=== PATIENT | female | born 1945 | race Caucasian/White ===

== ENCOUNTER 2017-07-13 13:25 | Observation (INO) | payer MEDICARE, OTHER ==
--- NOTE | 2017-07-13 14:59 | RAD ---
HISTORY: cough COMPARISON: No prior. TECHNIQUE: Chest PA and lateral FINDINGS: LUNGS: 9 mm nodular density in the right upper lung. No active pulmonary disease. PLEURA: No significant pleural effusion identified. No pneumothorax apparent. CARDIOVASCULAR: Atherosclerotic aortic calcification. Cardiomediastinal silhouette at the upper limits of normal in size. OSSEOUS STRUCTURES: Degenerative changes. VISUALIZED UPPER ABDOMEN: Normal. OTHER FINDINGS: Right axillary surgical clips. IMPRESSION: No focal consolidation or pleural effusion. 9 mm right upper lobe nodular density. CT scan of the chest can be obtained for further evaluation on a nonemergent basis as clinically warranted.
[2017-07-13 15:14] LABS: BASO % 0.2 % (0.0-2.0); EOS # 0.1 K/uL (0.0-0.7); EOS % 0.6 % (0.0-4.0); HEMOGLOBIN 12.7 g/dL (12.0-16.0); LYMPH # 1.2 K/uL (1.0-4.3); LYMPH % 14.1 % (20.0-40.0); MEAN CELL VOLUME 91.8 fl (81.0-99.0); MEAN CORPUSCULAR HEMOGLOBIN 31.7 pg (27.0-31.0); MEAN CORPUSCULAR HGB CONC 34.5 g/dL (33.0-37.0); MEAN PLATELET VOLUME 8.5 fl (7.2-11.7); MONO # 0.3 K/uL (0.0-0.8); MONO % 4.1 % (0.0-10.0); NEUT # 6.9 K/uL (1.8-7.0); RBC 4.01 Mil/uL (3.80-5.20); RED CELL DISTRIBUTION WIDTH 11.8 % (11.5-14.5); WHITE BLOOD COUNT 8.6 K/uL (4.8-10.8)
--- NOTE | 2017-07-13 15:22 | ED PDOC ---
HPI: Neurologic - General Time Seen by Provider: 07/13/17 14:16 Chief Complaint (Nursing): Abdominal Pain Chief Complaint (Provider): Abdominal Pain Source: patient Exam Limitations: no limitations - History of Present Illness Timing/Duration: 24 hours, episodic Allergies/Adverse Reactions: Allergies No Known Allergies Allergy (Verified 07/13/17 13:42) Home Medications: Ambulatory Orders Atenolol [Tenormin] 25 mg PO DAILY 07/13/17 Losartan [Cozaar] 100 mg PO DAILY 07/13/17 Rosuvastatin Calcium [Crestor] 5 mg PO DAILY 07/13/17 amLODIPine [Norvasc] 2.5 mg PO DAILY 07/13/17 Additional Complaint(s): 72 year old female with medical history of hypertension and hypercholesterolemia , presents to the emergency department for an evaluation of facial and upper chest twitching ongoing since yesterday. She also reports associated nausea, abdominal discomfort and productive cough with white sputum. Patient states she went to Urgent Care on 07/11/17 and had a CXR performed for her 1 month duration of productive cough which revealed possible infiltrates in the lung bases. She was prescribed Azithromycin and started medication 2 days ago. No reported fever or chills. Of note, patient is currently on Labetalol, Lodopin, Losartan and Crestor. PMD: recently moved to [facility] from [place], no established doctor yet. Past Medical History Reviewed: Historical Data, Nursing Documentation, Vital Signs Vital Signs: Last Vital Signs Temp 97 F L 07/13/17 13:42 Pulse 68 07/13/17 13:42 Resp 18 07/13/17 13:42 BP 137/80 07/13/17 13:42 Pulse Ox 97 07/13/17 13:42 - Medical History PMH: HTN, Hypercholesterolemia - Surgical History Other surgeries: bilateral masectomy - Family History Family History: States: No Known Family Hx - Social History Current smoker - smoking cessation education provided: No Ex-Smoker (has not smoked in the last 12 months): No Alcohol: None Drugs: Denies - Home Medications Home Medications: Ambulatory Orders Medication Instructions Recorded Atenolol [Tenormin] 25 mg PO DAILY 07/13/17 Losartan [Cozaar] 100 mg PO DAILY 07/13/17 Rosuvastatin Calcium [Crestor] 5 mg PO DAILY 07/13/17 amLODIPine [Norvasc] 2.5 mg PO DAILY 07/13/17 - Allergies Allergies/Adverse Reactions: Allergies Allergy/AdvReac Type Severity Reaction Status Date / Time No Known Allergies Allergy Verified 07/13/17 13:42 Review of Systems ROS Statement: Except As Marked, All Systems Reviewed And Found Negative Constitutional: Negative for: Fever, Chills Respiratory: Positive for: Cough, Sputum (white) Gastrointestinal: Positive for: Nausea, Abdominal Pain (discomfort) Neurological: Positive for: Other (facial and upper extremities twitching) Physical Exam - Reviewed Nursing Documentation Reviewed: Yes Vital Signs Reviewed: Yes - Physical Exam Appears: Positive for: No Acute Distress, Uncomfortable Head Exam: Positive for: ATRAUMATIC, NORMOCEPHALIC Skin: Positive for: Warm, Dry Eye Exam: Positive for: EOMI, PERRL ENT: Negative for: Pharyngeal Erythema, Tonsillar Exudate Neck: Positive for: Painless ROM, Supple Cardiovascular/Chest: Positive for: Regular Rate, Rhythm. Negative for: Murmur Respiratory: Positive for: Normal Breath Sounds. Negative for: Wheezing Gastrointestinal/Abdominal: Positive for: Soft. Negative for: Tenderness Back: Positive for: Normal Inspection. Negative for: Decreased ROM Extremity: Positive for: Normal ROM. Negative for: Deformity Lymphatic: Negative for: Adenopathy Neurologic/Psych: Positive for: Alert, Oriented, Other (sporadic episodes of facial/upper chest fasciculations lasting 1-2 seconds then resolves spontaneously on its own, ~10 episodes witnessed during exam.). Negative for: Motor/Sensory Deficits - Laboratory Results Result Diagrams: 07/13/17 15:07 07/13/17 15:07 - ECG O2 Sat by Pulse Oximetry: 97 (RA) Pulse Ox Interpretation: Normal Medical Decision Making Medical Decision Making: Initial Impression: Spontaneous muscle twitching Differential Diagnosis: Electrolyte abnormality; Neuropathy; Drug interaction; Adverse medicine effect Initial Plan: * Type and screen * EKG * CMP * Lact acid, plasma * Magnesium * Phosphorous * TSH * Urine dipstick * CBC * PTT * PT * CXR * Blood culture Labs unremarkable. DW Dr Mazariegos [facility]. Recommends MRI w contrast. Time: 1458 --CXR FINDINGS: LUNGS: 9 mm nodular density in the right upper lung. No active pulmonary disease. PLEURA: No significant pleural effusion identified. No pneumothorax apparent. CARDIOVASCULAR: Atherosclerotic aortic calcification. Cardiomediastinal silhouette at the upper limits of normal in size. OSSEOUS STRUCTURES: Degenerative changes. VISUALIZED UPPER ABDOMEN: Normal. OTHER FINDINGS: Right axillary surgical clips. IMPRESSION: No focal consolidation or pleural effusion. 9 mm right upper lobe nodular density. CT scan of the chest can be obtained for further evaluation on a nonemergent basis as clinically warranted. Time: 1622 --CT head FINDINGS: HEMORRHAGE: No intracranial hemorrhage. BRAIN: Good corticomedullary differentiation is seen. Diffuse expansion of the ventriculosulcal and cisternal spaces is appreciated with white matter lucency compatible with diffuse cerebral atrophy and chronic microangiopathy. No suspicious extra-axial fluid collection is identified and the midline brain anatomy appears grossly nonfocal as imaged. There is no mass effect throughout. Note is made of a prominent distal left common cavernous internal carotid artery which may represent fusiform aneurysm. VENTRICLES: Unremarkable. No hydrocephalus. CALVARIUM: Unremarkable. PARANASAL SINUSES: Unremarkable as visualized. No significant inflammatory changes. MASTOID AIR CELLS: Unremarkable as visualized. No inflammatory changes. OTHER FINDINGS: None. IMPRESSION: No definite acute intracranial findings as discussed above with age-appropriate age related neuro degenerative changes otherwise appreciated. Note is made of a potential fusiform aneurysm in the distal segment left cavernous ICA. Follow- up CT angiogram of the brain recommended. Follow-up CT or MRI also advised. Time: 1632 --CT Chest FINDINGS: LUNGS: A dominant mass is not appreciated including 1 no might correspond to the radiographic finding at the upper right chest in chest radiograph 07/13/2017 at 2:43 p.m.. However, there are multiple small nodules identified at the right lower lobe beginning (see image 43 through image 53 series 3) at the right middle lobe in image 38. These nodules vary in size from 3-6 mm greatest dimension and are noncalcified and appears solid. The central airways are clear. Nonspecific ground-glass opacity scattered throughout the upper and lower lobes mildly. MEDIASTINUM: Upper limits normal size ascending thoracic aorta at 3.9 cm. Cardiomegaly noted. No pulmonary venous congestion. Main pulmonary artery unremarkable. No lymphadenopathy. PLEURA: No pleural fluid. No pneumothorax. BONES: There is a nonspecific sclerotic density identified at the right 4th rib posteriorly. UPPER ABDOMEN: Grossly unremarkable. OTHER FINDINGS: None. IMPRESSION: 1. Multiple sub cm noncalcified solid nodules identified at the right lower lobe greater than right middle lobe and are of uncertain origin in could be postinfectious though there is extremely broad differs diagnosis this finding varying from benign to malignant etiologies. Malignancy is not favored but is not completely excluded either. Follow-up chest CT is advised 6 months to demonstrate stability. No significant lymphadenopathy is evident grossly the lack images contrast limits evaluation the mediastinum. There is no density corresponding to the nodular density at the right upper lobe region suspected based on chest radiograph performed 07/13/2017. 2. Cardiomegaly and dilatation of the ascending thoracic aorta without definite aneurysm formation at this time. 3. Sclerotic density posterior segment right 4th rib, nonspecific appearing. Time: 1744 --MRI Brain FINDINGS: HEMORRHAGE: None DWI: No evidence of an acute or early subacute infarction. BRAIN PARENCHYMA: Good corticomedullary differentiation is seen. Diffuse expansion of the ventriculosulcal and cisternal spaces is appreciated with white matter changes compatible with diffuse cerebral atrophy and chronic microangiopathy. No suspicious extra-axial fluid collection is identified and the midline brain anatomy appears grossly nonfocal as imaged. There is no mass effect throughout. ENHANCEMENT: No abnormal intracranial enhancement. VENTRICLES: Unremarkable. No hydrocephalus. CRANIUM: Unremarkable. ORBITS: Grossly unremarkable. PARANASAL SINUSES/MASTOIDS: Clear VASCULAR SYSTEM: Skull base flow voids intact. OTHER FINDINGS: Limited dolichoectasia of cavernous left internal carotid artery segment. IMPRESSION: No definite acute intracranial findings including brain infarction as discussed above. 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 For aneurysm evaluation, CT angiography is recommended if this is clinically required. Time: 1825 DW pt findings. Patient's fasciculations are getting worse as per patient and on evaluation. 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 All CT scans at this facility use one or more dose reduction techniques, viz.: automated exposure control; ma/kV adjustment per patient size (including targeted exams where dose is matched to indication; i.e. head); or iterative reconstruction technique. MIP reconstructed images were created and reviewed. CONTRAST: 95 mL of VISIPAQUE 320 administered intravenously. COMPARISON: CT - HEAD W/O CONTRAST 2017-07-13 15:56 FINDINGS: Right internal carotid artery: No acute findings. Intracranial segment is patent with no significant stenosis. No aneurysm. Right anterior cerebral artery: Unremarkable. No occlusion or significant stenosis. No aneurysm. Right middle cerebral artery: Unremarkable. No occlusion or significant stenosis. No aneurysm. Right posterior cerebral artery: Unremarkable. No occlusion or significant stenosis. No aneurysm. Right vertebral artery: Unremarkable as visualized. Left internal carotid artery: No acute findings. Intracranial segment is patent with no significant stenosis. No aneurysm. Left anterior cerebral artery: Unremarkable. No occlusion or significant stenosis. No aneurysm. Left middle cerebral artery: Unremarkable. No occlusion or significant stenosis. No aneurysm. Left posterior cerebral artery: Unremarkable. No occlusion or significant stenosis. No aneurysm. Left vertebral artery: Unremarkable as visualized. Basilar artery: Unremarkable. No occlusion or significant stenosis. No aneurysm. Sinuses: There is scattered mucosal thickening in the paranasal sinuses. IMPRESSION: No acute findings. Thank you for allowing us to participate in the care of your patient. Dictated and Authenticated by: Margo Blair MD 07/13/2017 7:52 PM Eastern Time ([place] & [place]) Pt continues to report worsening fasciculations. Pt to be hospitalized for increasing fasciculations with no apparent cause at this time. Concern for worsening neurologic issue that is as of yet undiagnosed. Consider partial seizure or myasthenia gravis. [facility]. Trial of ativan for muscle relaxation. Scribe Attestation: Documented by Augusta Guerra, acting as a scribe for Aleena Ibanez MD. Provider Scribe Attestation: All medical record entries made by the Scribe were at my direction and personally dictated by me. I have reviewed the chart and agree that the record accurately reflects my personal performance of the history, physical exam, medical decision making, and the department course for this patient. I have also personally directed, reviewed, and agree with the discharge instructions and disposition. Disposition - Clinical Impression Clinical Impression: Fasciculations - Disposition Disposition Time: 20:00 Condition: FAIR - Pt Status Changed To: Hospital Disposition Of: Inpatient - Admit Certification Admit to Inpatient:: After my assessment, the patient will require hospitalization for at least two midnights. This is because of the severity of symptoms shown, intensity of services needed, and/or the medical risk in this patient being treated as an outpatient. - POA Present On Arrival: None
[2017-07-13 15:28] LABS: ALB/GLOB RATIO 1.2 (1.0-2.1); ALBUMIN 3.9 g/dL (3.5-5.0); ALT/SGPT 52 U/L (9-52); AST/SGOT 29 U/L (14-36); BLOOD UREA NITROGEN 11 mg/dl (7-17); CALCIUM 9.2 mg/dL (8.4-10.2); GFR AFRICAN-AMERICAN > 60; GFR NON-AFRICAN AMERICAN > 60
[2017-07-13 15:32] LABS: PARTIAL THROMBOPLASTIN TIME 33.7 Seconds (25.6-37.1); PROTHROMBIN TIME 11.2 Seconds (9.8-13.1)
--- NOTE | 2017-07-13 16:24 | CT ---
PROCEDURE: CT HEAD WITHOUT CONTRAST. HISTORY: DIZZINESS NEW ONSET TREMOR FACE COMPARISON: None available. TECHNIQUE: Axial computed tomography images were obtained through the head/brain without intravenous contrast. Radiation dose: Total exam DLP = 797.30 mGy-cm. This CT exam was performed using one or more of the following dose reduction techniques: Automated exposure control, adjustment of the mA and/or kV according to patient size, and/or use of iterative reconstruction technique. FINDINGS: HEMORRHAGE: No intracranial hemorrhage. BRAIN: Good corticomedullary differentiation is seen. Diffuse expansion of the ventriculosulcal and cisternal spaces is appreciated with white matter lucency compatible with diffuse cerebral atrophy and chronic microangiopathy. No suspicious extra-axial fluid collection is identified and the midline brain anatomy appears grossly nonfocal as imaged. There is no mass effect throughout. Note is made of a prominent distal left common cavernous internal carotid artery which may represent fusiform aneurysm. VENTRICLES: Unremarkable. No hydrocephalus. CALVARIUM: Unremarkable. PARANASAL SINUSES: Unremarkable as visualized. No significant inflammatory changes. MASTOID AIR CELLS: Unremarkable as visualized. No inflammatory changes. OTHER FINDINGS: None. IMPRESSION: No definite acute intracranial findings as discussed above with age-appropriate age related neuro degenerative changes otherwise appreciated. Note is made of a potential fusiform aneurysm in the distal segment left cavernous ICA. Follow-up CT angiogram of the brain recommended. Follow-up CT or MRI also advised.
--- NOTE | 2017-07-13 16:34 | CT ---
PROCEDURE: CT Chest without contrast HISTORY: RIGHT UPPER LOBE NODULE H/O CANCER COMPARISON: None. TECHNIQUE: Contiguous axial images were obtained through the chest without intravenous contrast enhancement. Sagittal and coronal reconstructions were performed. Radiation dose (DLP): 325.71 mGy-cm. This CT exam was performed using one or more of the following dose reduction techniques: Automated exposure control, adjustment of the mA and/or kV according to patient size, and/or use of iterative reconstruction technique. FINDINGS: LUNGS: A dominant mass is not appreciated including 1 no might correspond to the radiographic finding at the upper right chest in chest radiograph 07/13/2017 at 2:43 p.m.. However, there are multiple small nodules identified at the right lower lobe beginning (see image 43 through image 53 series 3) at the right middle lobe in image 38. These nodules vary in size from 3-6 mm greatest dimension and are noncalcified and appears solid. The central airways are clear. Nonspecific ground-glass opacity scattered throughout the upper and lower lobes mildly. MEDIASTINUM: Upper limits normal size ascending thoracic aorta at 3.9 cm. Cardiomegaly noted. No pulmonary venous congestion. Main pulmonary artery unremarkable. No lymphadenopathy. PLEURA: No pleural fluid. No pneumothorax. BONES: There is a nonspecific sclerotic density identified at the right 4th rib posteriorly. UPPER ABDOMEN: Grossly unremarkable. OTHER FINDINGS: None. IMPRESSION: 1. Multiple sub cm noncalcified solid nodules identified at the right lower lobe greater than right middle lobe and are of uncertain origin in could be postinfectious though there is extremely broad differs diagnosis this finding varying from benign to malignant etiologies. Malignancy is not favored but is not completely excluded either. Follow-up chest CT is advised 6 months to demonstrate stability. No significant lymphadenopathy is evident grossly the lack images contrast limits evaluation the mediastinum. There is no density corresponding to the nodular density at the right upper lobe region suspected based on chest radiograph performed 07/13/2017. 2. Cardiomegaly and dilatation of the ascending thoracic aorta without definite aneurysm formation at this time. 3. Sclerotic density posterior segment right 4th rib, nonspecific appearing.
[2017-07-13] MEDS ORDERED: Gadodiamide 287 MG/ML VIAL (15ML) IV ONE (16:41)
--- NOTE | 2017-07-13 17:49 | MRI ---
PROCEDURE: MRI BRAIN WITH AND WITHOUT CONTRAST HISTORY: fasciculations face and possible aneurysm COMPARISON: Unenhanced head CT 07/13/2017. TECHNIQUE: Multiplanar, multisequence MR images of the brain were obtained with and without intravenous contrast enhancement. FINDINGS: HEMORRHAGE: None DWI: No evidence of an acute or early subacute infarction. BRAIN PARENCHYMA: Good corticomedullary differentiation is seen. Diffuse expansion of the ventriculosulcal and cisternal spaces is appreciated with white matter changes compatible with diffuse cerebral atrophy and chronic microangiopathy. No suspicious extra-axial fluid collection is identified and the midline brain anatomy appears grossly nonfocal as imaged. There is no mass effect throughout. ENHANCEMENT: No abnormal intracranial enhancement. VENTRICLES: Unremarkable. No hydrocephalus. CRANIUM: Unremarkable. ORBITS: Grossly unremarkable. PARANASAL SINUSES/MASTOIDS: Clear VASCULAR SYSTEM: Skull base flow voids intact. OTHER FINDINGS: Limited dolichoectasia of cavernous left internal carotid artery segment. IMPRESSION: No definite acute intracranial findings including brain infarction as discussed above. 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 For aneurysm evaluation, CT angiography is recommended if this is clinically required.
[2017-07-13] MEDS ORDERED: Sodium Chloride 0.9% 500 ML IV STA (18:22)
--- NOTE | 2017-07-13 18:22 | CARD ---
APPROVED REPORT EKG Measurement Heart [id number] <Conclusion> Normal sinus rhythm Nonspecific ST abnormality Abnormal ECG
[2017-07-13] MEDS ORDERED: Iodixanol 320 MG/ML 100 ML BOTTLE IV ONE (18:54)
[2017-07-14 00:10] VITALS: RESP 18
[2017-07-14 05:16] VITALS: TEMP 97.8
[2017-07-14] MEDS ORDERED: Pneumococcal 23-Valent Vaccine IM ONE (06:00)
[2017-07-14 06:58] LABS: HEMOGLOBIN 11.6 g/dL (12.0-16.0); MEAN CELL VOLUME 91.2 fl (81.0-99.0); MEAN CORPUSCULAR HEMOGLOBIN 31.5 pg (27.0-31.0); MEAN CORPUSCULAR HGB CONC 34.5 g/dL (33.0-37.0); RBC 3.69 Mil/uL (3.80-5.20); RED CELL DISTRIBUTION WIDTH 12.3 % (11.5-14.5); WHITE BLOOD COUNT 5.7 K/uL (4.8-10.8)
[2017-07-14 07:22] LABS: B-TYPE NATRIURETIC PEPTIDE 311 pg/ml (0-900)
[2017-07-14 07:33] LABS: ALB/GLOB RATIO 1.1 (1.0-2.1); ALBUMIN 3.3 g/dL (3.5-5.0); ALT/SGPT 37 U/L (9-52); AST/SGOT 24 U/L (14-36); BLOOD UREA NITROGEN 11 mg/dl (7-17); GFR AFRICAN-AMERICAN > 60; GFR NON-AFRICAN AMERICAN > 60
[2017-07-14 08:08] VITALS: BP 110/70; PULSE 71; O2SAT 93
--- NOTE | 2017-07-14 08:38 | CT ---
PROCEDURE: CT Angiography of the Brain at Neck. HISTORY: LEFT internal carotid dolichoectasia r/o aneurysm COMPARISON: None available. TECHNIQUE: CT angiography of the intracranial and neck arteries was performed. Coronal and sagittal maximum intensity projection reformated images were generated. Contrast Dose: Visipaque 320, 100 cc Radiation dose:Total exam DLP = 2261.04 mGy-cm. This CT exam was performed using one or more of the following dose reduction techniques: Automated exposure control, adjustment of the mA and/or kV according to patient size, and/or use of iterative reconstruction technique. FINDINGS: INTERNAL CEREBRAL ARTERIES: Unremarkable. The skull base, petrous, cavernous and supraclinoid segments are bilaterally widely patent. ANTERIOR CEREBRAL ARTERIES: Hypoplastic right A1 MARKO segment noted. The left A1 and bilateral A2 segments are widely patent. Smaller distal branches unremarkable, as visualized. MIDDLE CEREBRAL ARTERIES: Unremarkable. M1 and M2 segments are widely patent. Perisylvian branches grossly symmetric. POSTERIOR CIRCULATION: Basilar Artery: Unremarkable. Distal Vertebral Arteries: Left dominant vertebrobasilar circulation with limited atherosclerotic plaque noted at the left distal vertebral artery. Hypoplastic distal right vertebral artery. Posterior Cerebral Arteries: Unremarkable. Posterior Inferior Cerebellar Arteries: Unremarkable. NECK CTA: Common Carotid arteries: The bilateral common carotid appear widely patent from their origins to their bifurcations with no significant stenosis appreciated. No evidence to suggest common carotid artery dissection. Internal Carotid arteries: No significant stenosis is appreciated throughout the cervical internal carotid artery segments bilaterally and there is no evidence of dissection either. External Carotid arteries: Appear unremarkable bilaterally. Vertebral arteries: The left vertebral artery is widely patent to its junction with the basilar artery. The distal-most segment of the right right vertebral artery is hypoplastic but patent. No significant stenosis or definite pattern of dissection. ANEURYSM/ VASCULAR MALFORMATIONS: None. OTHER FINDINGS: None. IMPRESSION: No significant stenosis in major intracranial arterial circulation as well as carotid and vertebral arterial circulation through the neck. 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
--- NOTE | 2017-07-14 09:57 | CP.PCM.HP ---
Past Patient History - Past Social History Alcohol: None Drugs: Denies - CARDIAC Hx Hypercholesterolemia: Yes Hx Hypertension: Yes - PULMONARY Hx Respiratory Disorders: No - NEUROLOGICAL Hx Neurological Disorder: No - HEENT Hx HEENT Problems: No - RENAL Hx Chronic Kidney Disease: No - ENDOCRINE/METABOLIC Hx Endocrine Disorders: No - HEMATOLOGICAL/ONCOLOGICAL Hx Blood Disorders: No - INTEGUMENTARY Hx Dermatological Problems: No - MUSCULOSKELETAL/RHEUMATOLOGICAL Hx Musculoskeletal Disorders: No Hx Falls: No - GENITOURINARY/GYNECOLOGICAL Hx Genitourinary Disorders: No - PSYCHIATRIC Hx Psychophysiologic Disorder: No Hx Substance Use: No - ANESTHESIA Hx Anesthesia: No Meds Home Medications: Home Medication List Medication Instructions Recorded Confirmed Type Aspirin [Ecotrin] 81 mg PO DAILY #30 tabec 07/14/17 Rx Allergies/Adverse Reactions: Allergies Allergy/AdvReac Type Severity Reaction Status Date / Time No Known Allergies Allergy Verified 07/13/17 13:42 Results - Vital Signs Recent Vital Signs: Last Vital Signs Temp 97.8 F 07/14/17 08:07 Pulse 71 07/14/17 09:39 Resp 18 07/14/17 08:07 BP 110/70 07/14/17 09:39 Pulse Ox 93 L 07/14/17 08:07 - Labs Result Diagrams: 07/14/17 06:50 07/14/17 06:50 Labs: Laboratory Results - last 24 hr 07/13/17 07/13/17 07/13/17 15:07 15:07 15:07 WBC 8.6 RBC 4.01 Hgb 12.7 Hct 36.8 MCV 91.8 MCH 31.7 H MCHC 34.5 RDW 11.8 Plt Count 190 MPV 8.5 Neut % (Auto) 81.0 H Lymph % (Auto) 14.1 L Armstrong % (Auto) 4.1 Eos % (Auto) 0.6 Baso % (Auto) 0.2 Neut # (Auto) 6.9 Lymph # (Auto) 1.2 Armstrong # (Auto) 0.3 Eos # (Auto) 0.1 Baso # (Auto) 0.0 PT INR APTT Sodium 141 Potassium 3.6 Chloride 102 Carbon Dioxide 27 Anion Gap 16 BUN 11 Creatinine 0.6 L Est GFR ( Amer) > 60 Est GFR (Non-Af Amer) > 60 Random Glucose 110 H Lactic Acid 0.9 Calcium 9.2 Phosphorus 3.7 Magnesium 2.0 Total Bilirubin 0.6 AST 29 ALT 52 Alkaline Phosphatase 96 NT-Pro-B Natriuret Pep Total Protein 7.3 Albumin 3.9 Globulin 3.4 Albumin/Globulin Ratio 1.2 TSH 3rd Generation 1.23 Blood Type Antibody Screen BBK History Checked 07/13/17 07/13/17 07/14/17 15:07 15:07 06:50 WBC 5.7 RBC 3.69 L Hgb 11.6 L Hct 33.7 L MCV 91.2 MCH 31.5 H MCHC 34.5 RDW 12.3 Plt Count 190 MPV Neut % (Auto) Lymph % (Auto) Armstrong % (Auto) Eos % (Auto) Baso % (Auto) Neut # (Auto) Lymph # (Auto) Armstrong # (Auto) Eos # (Auto) Baso # (Auto) PT 11.2 INR 1.0 APTT 33.7 Sodium Potassium Chloride Carbon Dioxide Anion Gap BUN Creatinine Est GFR ( Amer) Est GFR (Non-Af Amer) Random Glucose Lactic Acid Calcium Phosphorus Magnesium Total Bilirubin AST ALT Alkaline Phosphatase NT-Pro-B Natriuret Pep Total Protein Albumin Globulin Albumin/Globulin Ratio TSH 3rd Generation Blood Type B POSITIVE Antibody Screen Negative BBK History Checked No verified bt 07/14/17 06:50 WBC RBC Hgb Hct MCV MCH MCHC RDW Plt Count MPV Neut % (Auto) Lymph % (Auto) Armstrong % (Auto) Eos % (Auto) Baso % (Auto) Neut # (Auto) Lymph # (Auto) Armstrong # (Auto) Eos # (Auto) Baso # (Auto) PT INR APTT Sodium 140 Potassium 4.0 Chloride 102 Carbon Dioxide 28 Anion Gap 14 BUN 11 Creatinine 0.6 L Est GFR ( Amer) > 60 Est GFR (Non-Af Amer) > 60 Random Glucose 101 Lactic Acid Calcium 9.0 Phosphorus Magnesium Total Bilirubin 0.7 AST 24 ALT 37 Alkaline Phosphatase 73 NT-Pro-B Natriuret Pep 311 Total Protein 6.4 Albumin 3.3 L Globulin 3.1 Albumin/Globulin Ratio 1.1 TSH 3rd Generation Blood Type Antibody Screen BBK History Checked
--- NOTE | 2017-07-14 10:50 | CP.PCM.DIS ---
Provider - Provider Date of Admission: 07/13/17 20:16 Attending physician: Jose Ibarra MD Time Spent in preparation of Discharge (in minutes): 25 Diagnosis - Discharge Diagnosis (1) Fasciculations Status: Resolved Comment: - may be secondary to Abx Azithromycin side effects. (2) HTN (hypertension) Status: Chronic Comment: -controlled (3) Pulmonary nodule Status: Acute Comment: -new finding in CT chest. -will f/u with CT in 6 months Hospital Course - Lab Results Lab Results: Most Recent Lab Values WBC 5.7 K/uL (4.8-10.8) 07/14/17 06:50 RBC 3.69 Mil/uL (3.80-5.20) L 07/14/17 06:50 Hgb 11.6 g/dL (12.0-16.0) L 07/14/17 06:50 Hct 33.7 % (34.0-47.0) L 07/14/17 06:50 MCV 91.2 fl (81.0-99.0) 07/14/17 06:50 MCH 31.5 pg (27.0-31.0) H 07/14/17 06:50 MCHC 34.5 g/dL (33.0-37.0) 07/14/17 06:50 RDW 12.3 % (11.5-14.5) 07/14/17 06:50 Plt Count 190 K/uL (130-400) 07/14/17 06:50 MPV 8.5 fl (7.2-11.7) 07/13/17 15:07 Neut % (Auto) 81.0 % (50.0-75.0) H 07/13/17 15:07 Lymph % (Auto) 14.1 % (20.0-40.0) L 07/13/17 15:07 Mower % (Auto) 4.1 % (0.0-10.0) 07/13/17 15:07 Eos % (Auto) 0.6 % (0.0-4.0) 07/13/17 15:07 Baso % (Auto) 0.2 % (0.0-2.0) 07/13/17 15:07 Neut # (Auto) 6.9 K/uL (1.8-7.0) 07/13/17 15:07 Lymph # (Auto) 1.2 K/uL (1.0-4.3) 07/13/17 15:07 Mower # (Auto) 0.3 K/uL (0.0-0.8) 07/13/17 15:07 Eos # (Auto) 0.1 K/uL (0.0-0.7) 07/13/17 15:07 Baso # (Auto) 0.0 K/uL (0.0-0.2) 07/13/17 15:07 PT 11.2 Seconds (9.8-13.1) 07/13/17 15:07 INR 1.0 (0.9-1.2) 07/13/17 15:07 APTT 33.7 Seconds (25.6-37.1) 07/13/17 15:07 Sodium 140 mmol/l (132-148) 07/14/17 06:50 Potassium 4.0 MMOL/L (3.6-5.0) 07/14/17 06:50 Chloride 102 mmol/L (98-107) 07/14/17 06:50 Carbon Dioxide 28 mmol/L (22-30) 07/14/17 06:50 Anion Gap 14 (10-20) 07/14/17 06:50 BUN 11 mg/dl (7-17) 07/14/17 06:50 Creatinine 0.6 mg/dl (0.7-1.2) L 07/14/17 06:50 Est GFR ( Amer) > 60 07/14/17 06:50 Est GFR (Non-Af Amer) > 60 07/14/17 06:50 Random Glucose 101 mg/dL (65-105) 07/14/17 06:50 Lactic Acid 0.9 MMOL/L (0.7-2.1) 07/13/17 15:07 Calcium 9.0 mg/dL (8.4-10.2) 07/14/17 06:50 Phosphorus 3.7 mg/dl (2.5-4.5) 07/13/17 15:07 Magnesium 2.0 MG/DL (1.6-2.3) 07/13/17 15:07 Total Bilirubin 0.7 mg/dl (0.2-1.3) 07/14/17 06:50 AST 24 U/L (14-36) 07/14/17 06:50 ALT 37 U/L (9-52) 07/14/17 06:50 Alkaline Phosphatase 73 U/L (38-126) 07/14/17 06:50 NT-Pro-B Natriuret Pep 311 pg/ml (0-900) 07/14/17 06:50 Total Protein 6.4 G/DL (6.3-8.2) 07/14/17 06:50 Albumin 3.3 g/dL (3.5-5.0) L 07/14/17 06:50 Globulin 3.1 gm/dL (2.2-3.9) 07/14/17 06:50 Albumin/Globulin Ratio 1.1 (1.0-2.1) 07/14/17 06:50 TSH 3rd Generation 1.23 mIU/ML (0.46-4.68) 07/13/17 15:07 Blood Type B POSITIVE 07/13/17 15:07 Antibody Screen Negative 07/13/17 15:07 BBK History Checked No verified bt 07/13/17 15:07 - Hospital Course Hospital Course: 72 yo ,f, PMhx/o HTN, HLD admitted for fasciculations noticed over lower part of neck , chest anterior and upper abd noticed 2 days ago , associated with new abx treatment Zythromax for chronic cough for about 1 month. Patient associates symptoms started after she started taking the abx, associated also with nausea, 2-3 vomiting and loose stools. Patient dined chest pain, Sob, no focal neurologic weakness. CXR showed RUL lung nodes [address] head w/o contrast showed possible left fusiform aneurism cavernous ICA, but CTA hea/ neck was negative for aneurysm. Patient seen by Neurologist and cleared to be discharged. Patient reports that fasciculations subsided since yesterday. Hemodynamically stable. Patient seen and examined bedside with Dr ibarra. Patient medically cleared. Will be discharged with Bromphed for cough, singular and activan. Of note, patient recent came from [place] and cough may be get worse related to seasonal allergy. Discharge Exam - Head Exam Head Exam: ATRAUMATIC, NORMOCEPHALIC - Eye Exam Eye Exam: Normal appearance - ENT Exam ENT Exam: Mucous Membranes Moist - Respiratory Exam Respiratory Exam: Clear to PA & Lateral. absent: Rales, Rhonchi, Wheezes - Cardiovascular Exam Cardiovascular Exam: REGULAR RHYTHM, +S1, +S2 - GI/Abdominal Exam GI & Abdominal Exam: Normal Bowel Sounds, Soft. absent: Guarding, Rebound - Neurological Exam Neurological exam: Alert, Normal Gait - Psychiatric Exam Psychiatric exam: Normal Affect, Normal Mood - Skin Skin Exam: Intact Discharge Plan - Discharge Medications Prescriptions: Aspirin [Ecotrin] 81 mg PO DAILY #30 tabec Montelukast Sodium [Singulair] 4 mg PO DAILY #30 tab.chew - Follow Up Plan Condition: FAIR Disposition: HOME/ ROUTINE Additional Instructions: Follow up with Neurologist Dr Mazariegos or Dr Kennedy in 2 weeks Follow up with Dr Ibarra in 7 days
== END 2017-07-14 12:08 | disposition home or self-care (01) ==
LOC: H.ER 13:25 → H.ERHOLD 20:16 → H.TEL 22:27
PROVIDERS: ADMIT Family Medicine; ATTEND Family Medicine
DX: R25.3 Fasciculation (principal); I10 Essential (primary) hypertension; E78.5 Hyperlipidemia, unspecified; E78.00 Pure hypercholesterolemia, unspecified; Z23 Encounter for immunization; I51.7 Cardiomegaly
CPT/HCPCS: 36415; 70450; 70496; 70498; 70553; 71046; 71250; 80053; 83605; 83735; 83880; 84100; 84443; 85025; 85027; 85610; 85730; 86850; 86900; 87040; 90732; 93005; 96360; 96374; 99285; A9579; G0009; G0378; J2060; J7040; Q9967